=== PATIENT | female | born 1970 | race Asian ===

== ENCOUNTER 2020-04-09 16:58 | Emergency (ER) | payer OTHER ==
[2020-04-09 17:38] VITALS: BP 140/92
== END 2020-04-09 17:38 | disposition home or self-care (01) ==
LOC: ED 16:58
DX: T18.9XXA Foreign body of alimentary tract, part unspecified, initial encounter (principal); W45.8XXA Other foreign body or object entering through skin, initial encounter; Y93.89 Activity, other specified; Y92.89 Other specified places as the place of occurrence of the external cause; Y99.8 Other external cause status